=== PATIENT | female | born 1975 | race Two or more races ===

== ENCOUNTER → 2019-06-27 | Outpatient (CLI) | payer OTHER | END | disposition home or self-care (01) | LOC: MAMO-SONO 08:30 | DX: N60.02 Solitary cyst of left breast (principal); N60.01 Solitary cyst of right breast ==

== ENCOUNTER 2021-09-13 13:28 | Outpatient (CLI) | payer OTHER | END 2021-09-13 13:43 | disposition home or self-care (01) | LOC: MAMO-SONO 13:28 | PROVIDERS: ATTEND Obstetrics & Gynecology | DX: N60.11 Diffuse cystic mastopathy of right breast (principal); N60.12 Diffuse cystic mastopathy of left breast; Z12.31 Encounter for screening mammogram for malignant neoplasm of breast ==

== ENCOUNTER 2023-01-03 14:08 | Outpatient (CLI) | payer OTHER | END 2023-01-03 14:31 | disposition home or self-care (01) | LOC: MAMO-SONO 14:08 | PROVIDERS: ATTEND Obstetrics & Gynecology | DX: Z12.31 Encounter for screening mammogram for malignant neoplasm of breast (principal); N60.11 Diffuse cystic mastopathy of right breast; N60.12 Diffuse cystic mastopathy of left breast ==

== ENCOUNTER 2024-09-09 10:46 | Outpatient (CLI) | payer OTHER | END 2024-09-09 10:59 | disposition home or self-care (01) | LOC: MAMO-SONO 10:46 | PROVIDERS: ATTEND Obstetrics & Gynecology | DX: N60.11 Diffuse cystic mastopathy of right breast (principal); N60.12 Diffuse cystic mastopathy of left breast; Z12.31 Encounter for screening mammogram for malignant neoplasm of breast ==